=== PATIENT | male | born 1965 | race Caucasian/White ===

== ENCOUNTER 2022-08-16 16:07 | Inpatient (IN) | payer MEDICARE ==
[~2022-08-16] VITALS: Ht 185.4 cm; Wt 80.3 kg
[2022-08-16 20:35] LABS: BASOPHILS # (AUTO) 0.1 X10'3 (0-0.2); BASOPHILS % (AUTO) 1.2 % (0-1); EOSINOPHILS # (AUTO) 0.3 X10'3 (0-0.9); EOSINOPHILS % (AUTO) 4.2 % (0-6); HEMATOCRIT 46.5 % (42.0-52.0); HEMOGLOBIN 15.6 g/dl (14.0-17.9); LYMPHOCYTES # (AUTO) 1.8 X10'3 (1.1-4.8); LYMPHOCYTES % (AUTO) 29.3 % (21-51); MEAN CORPUSCULAR HEMOGLOBIN 30.5 PG (27.0-31.0); MEAN CORPUSCULAR HGB CONC 33.6 g/dL (33.0-36.5); MEAN CORPUSCULAR VOLUME 90.8 FL (78-98); MEAN PLATELET VOLUME 7.2 FL (7.4-10.4); MONOCYTES # (AUTO) 0.6 X10'3 (0-0.9); MONOCYTES % (AUTO) 9.2 % (2-12); NEUTROPHILS # (AUTO) 3.4 X10'3 (1.8-7.7); NEUTROPHILS % (AUTO) 56.1 % (42-75); PLATELET COUNT 249 X10'3 (140-440); RED BLOOD COUNT 5.12 X10'6 (4.70-6.10); RED CELL DISTRIBUTION WIDTH 13.3 % (11.5-14.5)
[2022-08-16 20:50] LABS: ALANINE AMINOTRANSFERASE 24 U/L (12-78); ALBUMIN/GLOBULIN RATIO 1.2 (1.1-1.5); ALKALINE PHOSPHATASE 96 IU/L (46-116); ANION GAP 11 (8-16); ASPARTATE AMINO TRANSFERASE 16 U/L (10-37); BILIRUBIN,TOTAL 0.4 MG/DL (0.1-1.0); BLOOD UREA NITROGEN 24 MG/DL (7-18); BUN/CREATININE RATIO 25.8 (10.0-20.0); CALCIUM 9.4 MG/DL (8.5-10.1); CHLORIDE 103 MMOL/L (99-107); CREATINE KINASE 248 U/L (39-308); CREATININE 0.93 MG/DL (0.60-1.10); GLUCOSE 97 MG/DL (70-104); POTASSIUM 4.6 MMOL/L (3.5-5.1); SODIUM 141 MMOL/L (135-145); TOTAL CARBON DIOXIDE 27.5 MMOL/L (24-32); TOTAL PROTEIN 7.3 G/DL (6.4-8.2); eGFR 83 ML/MIN
--- NOTE | 2022-08-16 23:05 | NUR ---
PT REPORTS PUPPY WAS TAKEN FROM HIM IN [place] WHICH HAS "STARTED THIS WHOLE THING" PT REPORTS HE WANTS TO KILL HIMSELF IF HE DOES NOT GET HIS PUPPY BACK. PT ADDITIONALLY MADE THREATS TO HARM OTHERS IN [facility] AND CURRENTLY ADMITS TO THREATS MADE. SOME PARANOIA PRESENT WELL STATING "PEOPLE HAVE BEEN FOLLOWING ME FROM [place]"
[2022-08-17] MEDS ORDERED: gabapentin 400mg capsule PO SCH
[2022-08-17 00:02] LABS: CLARITY,URINE CLEAR (Clear); COLOR,URINE YELLOW (Yellow); GLUCOSE, URINE NEGATIVE (Neg); KETONES,URINE NEGATIVE (Neg); LEUKOCYTE ESTERASE ,URINE NEGATIVE (Neg); NITRITES, URINE NEGATIVE (Neg); OCCULT BLOOD,URINE NEGATIVE (Neg); PH,URINE 5.5 (4.8-8.0); PROTEIN,URINE NEGATIVE (Neg); UROBILINOGEN,URINE 0.2 E.U/dL (0.2-1.0)
[2022-08-17] MEDS ORDERED: gabapentin 300mg capsule PO ONE (00:07)
[2022-08-17] MEDS ORDERED: gabapentin 300mg capsule PO SCH (00:07)
[2022-08-17 00:10] LABS: UA COLLECTION TYPE CLN CATCH MIDSTREAM
[2022-08-17] MEDS ORDERED: GABA300C PO (02:25)
[2022-08-17 06:39] LABS: URINE AMPHETAMINE SCREEN NEGATIVE (Neg); URINE BARBITUATE SCREEN NEGATIVE (Neg); URINE BENZODIAZEPINES SCREEN NEGATIVE (Neg); URINE CANNABINOID SCREEN POSITIVE (Neg); URINE COCAINE SCREEN NEGATIVE (Neg); URINE METHADONE SCREEN NEGATIVE (Neg); URINE OPIATE SCREEN NEGATIVE (Neg); URINE PHENCYCLIDINE SCREEN NEGATIVE (Neg)
--- NOTE | 2022-08-17 07:50 | NUR ---
Pt. was transferred over from the main ER in a wheelchair accompanied by staff and security.
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
[2022-08-17] MEDS: gabapentin 300mg capsule PO SCH ×3 (08:43→20:47)
--- NOTE | 2022-08-17 09:33 | NUR ---
Pt. is sitting up in bed quietly at this time. Head of bed is elevated.
--- NOTE | 2022-08-17 11:00 | NUR ---
[facility] at bedside evaluating pt. at this time, he became tearful and was provided with tissues. Per [facility] welding operator, pt. will be placed on a mental health hold.
--- NOTE | 2022-08-17 13:20 | NUR ---
Pt. is sleeping at this time with head of bed elevated, no s/s of distress noted.
--- NOTE | 2022-08-17 15:20 | NUR ---
Pt. is sitting up in bed quietly at this time, he is in LOS of the nurse's station.
--- NOTE | 2022-08-17 16:50 | NUR ---
Pt. is up to use the bathroom at this time, he is able to ambulate independently with use of FWW.
--- NOTE | 2022-08-17 17:34 | NUR ---
Pt. is sitting up eating dinner at this time.
--- NOTE | 2022-08-17 20:30 | NUR ---
Patient recieved at 1830. Patient found laying in bed resting. Patient lung sounds were clear and patient complained of 6/10 pain in left leg. Patient self transport to bathroom using walker. Patient is polite and cooperative with assesment. Patient denies VH
--- NOTE | 2022-08-17 22:21 | NUR ---
Patient took scheduled gabapentin for leg pain and returned to bed.
--- NOTE | 2022-08-18 00:31 | NUR ---
Patient observed sleeping. Patient turns back and forth in bed.
[2022-08-18] MEDS ORDERED: gabapentin 300mg capsule PO ONE (02:25)
[2022-08-18] MEDS ORDERED: quetiapine 100mg tablet PO ONE (02:25)
[2022-08-18] MEDS ORDERED: QUEtiapine 25mg tablet PO ONE ×2 (02:33→21:35)
--- NOTE | 2022-08-18 02:36 | NUR ---
Patient woke up due to neighbor screaming and moaning. Patient started complaining of pain in left leg. Patient also complained of difficulty going back to sleep. Patient was ordered gabapentin one time 300mg and seroquel 25mg. Patient took medications and returned to sleep.
--- NOTE | 2022-08-18 04:34 | NUR ---
Patient currently sleeping . Breaths even and unlabored
--- NOTE | 2022-08-18 07:00 | NUR ---
Pt. asleep on his LT. side, no distress noted
[2022-08-18] MEDS: gabapentin 300mg capsule PO SCH ×3 (08:17→21:14)
--- NOTE | 2022-08-18 08:30 | NUR ---
Pt. awake, eating breakfast, no complaints
--- NOTE | 2022-08-18 09:01 | NUR ---
Pt. asleep on his back, no distress noted.
--- NOTE | 2022-08-18 11:00 | NUR ---
Pt. awake in his bed, talking to cohort next to him, no distress noted.
--- NOTE | 2022-08-18 12:16 | NUR ---
Pt. awake, sitting on his bed, and eating lunch.
--- NOTE | 2022-08-18 14:15 | NUR ---
Pt. awake and sitting in his bed, no distress noted.
--- NOTE | 2022-08-18 16:00 | NUR ---
Pt. ambulating with walker, pt. doesnt put weight on LLE d/t pain.
--- NOTE | 2022-08-18 18:05 | NUR ---
Pt. eating dinner, no distress noted.
--- NOTE | 2022-08-18 18:50 | NUR ---
Patient awake and alert and chatting with his neighbor. No distress observed. Continue to monitor.
--- NOTE | 2022-08-18 20:34 | NUR ---
Patient sitting in bed chatting with 2 peers. No distress observed. Continue to monitor.
--- NOTE | 2022-08-18 22:05 | NUR ---
Patient had requested sleep medication and RN gave medication. Patient is aware he is going upstairs soon. Continue to monitor.
[2022-08-18] MEDS ORDERED: magnesium hydroxide 30ml (MOM) UD suspension PO PRN (22:20)
[2022-08-18] MEDS ORDERED: acetaminophen 325mg tablet PO PRN (22:20)
[2022-08-18] MEDS ORDERED: mag hydrox/Alum hydrox/simeth 30ml oral suspension PO PRN (22:20)
[2022-08-18] MEDS ORDERED: loperamide 2mg capsule PO PRN (22:20)
[2022-08-18] MEDS: traZODone 50mg tablet PO PRN (23:49)
[2022-08-19] MEDS: traZODone 50mg tablet PO PRN ×2 (01:11→20:51)
--- NOTE | 2022-08-19 01:11 | NUR ---
Patient remains awake. Trazadone 100 mg was given PO.
[2022-08-19] MEDS ORDERED: QUET-1 PO (04:34)
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
[2022-08-19 07:00] VITALS: BP 107/60
[2022-08-19 07:54] LABS: HEMOGLOBIN A1C 5.7 % (4.5-6.2)
[2022-08-19] MEDS: gabapentin 300mg capsule PO SCH ×3 (07:57→20:50)
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
--- NOTE | 2022-08-19 17:18 | NUR ---
Nursing Progress Note: Luisana Problems: Patient was accepted to [facility] from [facility] however upon arriving pt was told he did not need his crutches which the patient states was not true. pt began making threats to the [facility] and also made suicidal comments. pt is admitted on a 5150 will unstable mood disorder. Interventions: Provide medication administration & medication management; Maintained a safe & supportive environment; Clear & simple instructions; Direction & encouragement regarding performance of ADLs; monitored behaviors & maintained clear boundaries; Patient physical assessment & 1:1 patient interview; Therapeutic conversation & active listening; Patient education & monitoring. Response: Patient has slept majority of AM shift. Pt was compliant with medication pass and when woke up, pt stated he hardly slept at all the night before. See earlier nursing note for delusional occurrence with primary RN Plan: Continue hospitalization for further stabilization and treatment. Continue q 15 minute safety checks. Assist patient as needed
[2022-08-19] MEDS: OLANZapine 2.5MG tablet PO SCH (20:50)
[2022-08-19] MEDS: quetiapine 100mg tablet PO SCH (20:51)
[2022-08-19] MEDS ORDERED: quetiapine 100mg tablet PO SCH ×2 (21:00)
--- NOTE | 2022-08-20 04:12 | NUR ---
Nursing Progress Note: Rodolfo Problem: Patient was accepted to [facility] from [facility] however upon arriving pt was told he did not need his crutches which the patient states was not true. pt began making threats to the [facility] and also made suicidal comments. pt is admitted on a 5150 will unstable mood disorder. Interventions: Maintained a safe and supportive environment, ensured contract for safety, provided clear and simple instructions, q15 checks Response: Patient was found in sleeping at change of shift. Patient stayed in bed until coming out to participate in snack time. Patient continues to complain about lower L leg pain. Patient refuses pain medication and just wants his scheduled gabapentin. Patient requested prn trazodone along with her night medications. Patient socialized in community room with other patients before going back to bed. Patient didnt require 2nd trazodone tonight. Plan: Pt. continues to require a safe and supportive environment.
[2022-08-20] MEDS: gabapentin 300mg capsule PO SCH ×2 (08:47→13:25)
[2022-08-20] MEDS: acetaminophen 325mg tablet PO PRN (13:26)
[2022-08-20] MEDS ORDERED: LORazepam 1 MG tablet PO ONE (14:35)
--- NOTE | 2022-08-20 17:59 | NUR ---
Nursing Progress Note: Rodolfo Problem: Patient was accepted to [facility] from [facility] however upon arriving pt was told he did not need his crutches which the patient states was not true. pt began making threats to the [facility] and also made suicidal comments. pt is admitted on a 5150 will unstable mood disorder. Interventions: Maintained a safe and supportive environment, ensured contract for safety, provided clear and simple instructions, q15 checks Response: Patient sleeping in bed at change of shift. Patient gets up for breakfast and then goes back to bed. Patient is medication compliant. 1:1 performed at bedside. Patient reports that he has attempted to kill himself over 200 times. He states that he either wants to go to a state mental hospital, or he wants to go to [facility]. Patient has paranoid delusions that he is being followed by many people and institutions, and patient feels that the only way to stay safe is to go into a state halfway care facility. Patient has slightly pressured speech. During his visit with LEN Olmedo, he was becoming agitated and RN was asked to bring him an Ativan during visit. Patient then went and laid down for a nap. Patient also took Tylenol for pain with some benefit. Plan: Pt. continues to require a safe and supportive environment.
[2022-08-20] MEDS: traZODone 50mg tablet PO PRN (19:57)
[2022-08-20] MEDS: quetiapine 100mg tablet PO SCH (19:58)
[2022-08-20] MEDS: OLANZapine 2.5MG tablet PO SCH (19:58)
[2022-08-20] MEDS: gabapentin 400mg capsule PO SCH (19:59)
--- NOTE | 2022-08-21 01:12 | NUR ---
Nursing Progress Note: Problem: Patient was accepted to [facility] from [facility] however upon arriving pt was told he did not need his crutches which the patient states was not true. pt began making threats to the [facility] and also made suicidal comments. pt is admitted on a 5150 will unstable mood disorder. Interventions: Maintained a safe and supportive environment, ensured contract for safety, provided clear and simple instructions, q15 checks Response: Patient is awake and oriented, he ambulates the hallways and is noted in the community room at times. The patient is cooperative. When asked about S/I he states "lots of plans." Patient does not discuss H/I. Patient denies hallucinations. Patient uses a walker for ambulation. He is pink, W/D, he looks well groomed. No distress noted, no internal stimuli noted. During his visit with LEN Olmedo, he was becoming agitated and RN was asked to bring him an Ativan during visit. Patient then went and laid down for a nap. Patient also took Tylenol for pain with some benefit. Plan: Pt. continues to require a safe and supportive environment.
[2022-08-21] MEDS: LIDOcaine 5% patch TP SCH (08:52)
[2022-08-21] MEDS: gabapentin 400mg capsule PO SCH ×3 (08:52→21:11)
[2022-08-21] MEDS: acetaminophen 325mg tablet PO PRN (08:53)
--- NOTE | 2022-08-21 16:56 | NUR ---
Nursing Progress Note: Rodolfo Problem: Patient was accepted to [facility] from [facility] however upon arriving pt was told he did not need his crutches which the patient states was not true. pt began making threats to the [facility] and also made suicidal comments. pt is admitted on a 5150 will unstable mood disorder. Interventions: Maintained a safe and supportive environment, ensured contract for safety, provided clear and simple instructions, q15 checks Response: Patient awakened for breakfast and then went back to bed. Patient was given Tylenol and Lidocaine patch for pain 8'1 Plan: Pt. continues to require a safe and supportive environment.
--- NOTE | 2022-08-21 17:05 | NUR ---
Nursing Progress Note: Rodolfo Problem: Patient was accepted to [facility] from [facility] however upon arriving pt was told he did not need his crutches which the patient states was not true. pt began making threats to the [facility] and also made suicidal comments. pt is admitted on a 5150 will unstable mood disorder. Interventions: Maintained a safe and supportive environment, ensured contract for safety, provided clear and simple instructions, q15 checks Response: Patient awakened for breakfast and then went back to bed. Patient was given Tylenol and Lidocaine patch for pain 01/05. Patient then went back to bed and slept for a majority of the day. Hospitalist came to see patient. Will check T3 and T4 due to TSH being elevated. Patient is cooperative with treatment and is medication compliant. Patient does talk about plans of SI/HI, and going to group home or [facility]. Patient walks with FWW for ambulation. Plan: Pt. continues to require a safe and supportive environment.
[2022-08-21] MEDS: traZODone 50mg tablet PO PRN (21:04)
[2022-08-21] MEDS: quetiapine 100mg tablet PO SCH (21:05)
[2022-08-21] MEDS: olanzapine 10mg tablet PO SCH (21:05)
[2022-08-21 22:30] VITALS: BP 124/68
--- NOTE | 2022-08-22 02:14 | NUR ---
Nursing Progress Note: Problem: Patient was accepted to [facility] from [facility] however upon arriving pt was told he did not need his crutches which the patient states was not true. pt began making threats to the [facility] and also made suicidal comments. pt is admitted on a 5150 will unstable mood disorder. Interventions: Maintained a safe and supportive environment, ensured contract for safety, provided clear and simple instructions, q15 checks Response: Pt. in bed at change of shift, and later observed sitting quietly in community room watching TV. Pt. is pleasant and cooperative. Pt. states "I don't want to be alive and I've been thinking about jumping off the [place] or the bridge [place]'s next to it". He denies AH/VH. Pt. reports lidocaine patch came off during his shower. Pt. isolates to self. Compliant with medications. Continues to use a FWW with ambulation. Observed and appears to be sleeping without difficulty. Plan: Pt. continues to require a safe and supportive environment.
[2022-08-22 07:00] VITALS: BP 106/69
[2022-08-22] MEDS: sertraline 25mg tablet PO SCH (08:42)
[2022-08-22] MEDS: gabapentin 400mg capsule PO SCH ×3 (08:42→20:26)
[2022-08-22] MEDS: LIDOcaine 5% patch TP SCH (08:42)
[2022-08-22] MEDS: acetaminophen 325mg tablet PO PRN (08:48)
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
[2022-08-22 19:00] VITALS: BP 119/68
[2022-08-22] MEDS: traZODone 50mg tablet PO PRN (20:25)
[2022-08-22] MEDS: quetiapine 100mg tablet PO SCH (20:25)
[2022-08-22] MEDS: olanzapine 10mg tablet PO SCH (20:25)
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
[2022-08-23 07:00] VITALS: BP 107/65
[2022-08-23] MEDS: acetaminophen 325mg tablet PO PRN ×2 (08:02→15:00)
[2022-08-23] MEDS: sertraline 25mg tablet PO SCH (08:02)
[2022-08-23] MEDS: gabapentin 400mg capsule PO SCH ×3 (08:02→20:17)
[2022-08-23] MEDS: LIDOcaine 5% patch TP SCH (08:03)
--- NOTE | 2022-08-23 10:01 | NUR ---
Initial: Pt admit for psychosis. Pt eating well documented with mostly 100% PO intake of regular meals while receiving double protein TID. Pt exceeding estimated nutrient needs at this time. LBM 08/21 per EMR, with PRN bowel care available. No nutrition intervention at this time. Will continue to follow. Recommendations: 1) Continue regular diet; double protein TID per diet order 2) Bowel care PRN 3) Weekly scaled weights Addendum: 08/23/22 at [address] Amended: Links added.
--- NOTE | 2022-08-23 17:53 | NUR ---
Nursing Progress Note: Rodolfo Problem: Patient was accepted to [facility] from [facility], however, upon arriving pt was told he did not need his crutches which the patient states was not true. Pt began making threats to the [facility] and also made suicidal comments. Pt was admitted on a 5150 with unstable mood disorder. Interventions: Provided 1:1 assessment, maintained a safe and supportive environment, ensured contract for safety, provided clear and simple instructions, therapeutic conversation, attempted to orient to reality, medication administration/education/monitoring, and maintained Q15 minute safety checks. Response: Patient received sleeping in his room shift change. He was awoken for breakfast and was noted joining in the group room with peers. Pt c/o left foot and lower back pain, given PRN Tylenol for pain management. He was receptive to scheduled medication and 1:1 assessment. Patient continues making delusional statements of running from the [employer] drug cartel. Pt also endorsing that he wants to [facility] the [facility] to get away from the cult. He endorses SI without a plan, patient stating that he wishes to jump off the [place] or go out of state for assisted suicide. He denies HI, AH or VH. Patient walks with FWW for ambulation. He was noted napping in his room intermittently throughout the day. Pt joined for all meal and snack times in the group room with peers. Plan: Pt. continues to require a safe and supportive environment.
[2022-08-23 19:38] VITALS: BP 104/67
[2022-08-23] MEDS: traZODone 50mg tablet PO PRN (20:17)
[2022-08-23] MEDS: olanzapine 10mg tablet PO SCH (20:17)
--- NOTE | 2022-08-23 21:34 | NUR ---
Nursing Progress Note: Rodolfo Problem: Patient was accepted to [facility] from [facility], however, upon arriving pt was told he did not need his crutches which the patient states was not true. Pt began making threats to the [facility] and also made suicidal comments. Pt was admitted on a 5150 with unstable mood disorder. Interventions: Provided 1:1 assessment, maintained a safe and supportive environment, ensured contract for safety, provided clear and simple instructions, therapeutic conversation, attempted to orient to reality, medication administration/education/monitoring, and maintained Q15 minute safety checks. Response: Pt was napping in his room at change of shift. Pt states he was hoping to go to "[facility], but states he will just [place] they [place] take him. Pt states "I cant get an apartment, they tell everyone I"m coming before I get to town and nobody will rent to me." Pt states he is ok with being homeless because "[place], I only had to go to the hospital twice." Pt rates his depression at a 6/10 stating its "getting better." Pt reports s/i "sometimes." Pt declined to come out of his room for snacks, took HS meds and went to bed. Plan: Pt. continues to require a safe and supportive environment.
[2022-08-24] MEDS: acetaminophen 325mg tablet PO PRN (05:32)
[2022-08-24 07:00] VITALS: BP 115/72
[2022-08-24] MEDS: sertraline 25mg tablet PO SCH (07:54)
[2022-08-24] MEDS: gabapentin 400mg capsule PO SCH ×3 (07:54→20:23)
[2022-08-24] MEDS: LIDOcaine 5% patch TP SCH (08:08)
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
--- NOTE | 2022-08-24 15:02 | NUR ---
DISCHARGE PLAN-Mon08/26/22 [facility] is going to tow picker [place] 12-1PM on Monday. They are going to transport him back to his vehicle in [place]. GLENN Do
[2022-08-24 19:00] VITALS: BP 115/63
[2022-08-24] MEDS: olanzapine 10mg tablet PO SCH (20:23)
--- NOTE | 2022-08-25 04:10 | NUR ---
Nursing Progress Note: Problem: Patient was accepted to [facility] from [facility], however, upon arriving pt was told he did not need his crutches which the patient states was not true. Pt began making threats to the [facility] and also made suicidal comments. Pt was admitted on a 5150 with unstable mood disorder. Interventions: 1:1 assessment, therapeutic conversation, active listening, medication administration/education/monitoring, ensured contract for safety, fall prevention, attempted reality orientation, provided distraction, direction, positive reinforcement, and Q15 minute safety checks. Response: Patient is pleasant and cooperative with care; compliant with medication. He endorses SI with a plan to "jump off the [place] or purchace $200 of gasoline, light a much and let it burn." Patient endorsed wanting to kill his neighbor. He expressed some delusional thought content about the "[employer]" and "the cult" coming after him. Patient appeared disorganized while conversing with travel writer. Patient participated in HS snack and watched TV in the community room prior to bed; observed sleeping and does not appear to be having difficulty. Plan: Pt continues to endorse SI and HI. Pt continues to need medication management and monitoring in a safe and therapeutic environment.
[2022-08-25] MEDS: LIDOcaine 5% patch TP SCH (07:26)
[2022-08-25] MEDS: sertraline 25mg tablet PO SCH (07:27)
[2022-08-25] MEDS: gabapentin 400mg capsule PO SCH ×3 (07:27→20:28)
[2022-08-25 07:30] VITALS: BP 120/60
[2022-08-25] MEDS: acetaminophen 325mg tablet PO PRN ×3 (07:31→20:28)
--- NOTE | 2022-08-25 15:49 | NUR ---
Nursing Progress Note: Rodolfo Problem: Patient was accepted to [facility] from [facility], however, upon arriving pt was told he did not need his crutches which the patient states was not true. Pt began making threats to the [facility] and also made suicidal comments. Pt was admitted on a 5150 with unstable mood disorder. Interventions: 1:1 assessment, therapeutic conversation, active listening, medication administration/education/monitoring, ensured contract for safety, fall prevention, attempted reality orientation, provided distraction, direction, positive reinforcement, and Q15 minute safety checks. Response: Received Pt in bed sleeping w/o distress at the beginning of this shift. Pt cooperative with vitals and up to rec. rm. to watch TV. Pt ate well and was pleasant during AM assessments and took meds w/o issue. Pt appeared to be able to smile and joke at times but remains depressed and endorses SI. Pt isolated to room at times and watched some TV but did not interact with other patients, but did engage with staff when approached. Plan: Pt continues to endorse SI and HI. Pt continues to need medication management and monitoring in a safe and therapeutic environment.
[2022-08-25 19:00] VITALS: BP 112/67
[2022-08-25] MEDS: traZODone 50mg tablet PO PRN (20:26)
[2022-08-25] MEDS: olanzapine 10mg tablet PO SCH (20:26)
--- NOTE | 2022-08-26 04:13 | NUR ---
Nursing Progress Note: Rodolfo Problem: Patient was accepted to [facility] from [facility], however, upon arriving pt was told he did not need his crutches which the patient states was not true. Pt began making threats to the [facility] and also made suicidal comments. Pt was admitted on a 5150 with unstable mood disorder. Interventions: 1:1 assessment, therapeutic conversation, active listening, medication administration/education/monitoring, ensured contract for safety, fall prevention, attempted reality orientation, provided distraction, direction, positive reinforcement, and Q15 minute safety checks. Response: Patient was found laying in bed at change of shift. Patient got up later and took many paces up and down the [place] with assistance of a walker. Patient stated he was trying to get some steps in. Patient requested prn Tylenol for leg pain and trazodone to help him sleep. Patient got up to participate in snack and went to bed after taking night medications without issue. Plan: Pt continues to endorse SI and HI. Pt continues to need medication management and monitoring in a safe and therapeutic environment.
[2022-08-26 07:00] VITALS: BP 127/73
[2022-08-26] MEDS: sertraline 25mg tablet PO SCH (07:18)
[2022-08-26] MEDS: LIDOcaine 5% patch TP SCH (07:19)
[2022-08-26] MEDS: gabapentin 400mg capsule PO SCH ×2 (07:19→12:25)
[2022-08-26] MEDS: acetaminophen 325mg tablet PO PRN (08:57)
[2022-08-26] MEDS ORDERED: OLAN10TA73 PO (10:26)
[2022-08-26] MEDS ORDERED: SERT-432 PO (10:26)
[2022-08-26] MEDS ORDERED: TRAZ-251 PO (10:26)
[2022-08-26] MEDS ORDERED: GABA-534 PO (10:26)
--- NOTE | 2022-08-26 12:55 | NUR ---
Discharge Patient left unit at 1255. Patient was sad about leaving stating the place he is going to is not nice. Patient took morning medications and afternoon medications without issue. Patient signed all discharge paperwork and agreed with inventory. Patient was given back shoes and crutches and was assisted walking down to transportation.
== END 2022-08-26 12:55 | disposition home or self-care (01) | DRG 885 ==
LOC: ER 16:08 → ED HOLD 08-18 19:45 → ADULT MH 08-18 22:01
PROVIDERS: ADMIT Psychiatry & Neurology Psychiatry; ATTEND Psychiatry & Neurology Psychiatry
DX: F29 Unspecified psychosis not due to a substance or known physiological condition (principal); R45.851 Suicidal ideations; G90.59 Complex regional pain syndrome I of other specified site; M79.606 Pain in leg, unspecified; Z20.822 Contact with and (suspected) exposure to COVID-19; F32.A Depression, unspecified; F44.81 Dissociative identity disorder; G89.4 Chronic pain syndrome; F41.9 Anxiety disorder, unspecified; M54.9 Dorsalgia, unspecified; Z79.899 Other long term (current) drug therapy
CPT/HCPCS: 36415; 80053; 80305; 81003; 82550; 83036; 83721; 84439; 84443; 84480; 85025; 87081; 87811; 93922; 93925; 97116; 97161; 97530; 99285